=== PATIENT | male | born 1965 | race Caucasian/White ===

== ENCOUNTER 2022-05-09 23:50 | Emergency (ER) | payer SELFPAY ==
[2022-05-10] MEDS: Sodium Chloride 0.9% 1,000 ML IV ONE (00:10)
[2022-05-10] MEDS: HYDROmorphone 1 MG/ML Syringe IVPUSH ONE (00:15)
[2022-05-10 00:38] LABS: ANION GAP 11.8 mmol/L (5-15); CHLORIDE,CL 99 mmol/L (98-107); ESTIMATED GFR 80 mL/min (>=60); SODIUM,NA 131 mmol/L (136-145)
[2022-05-10] MEDS: Iopamidol 612 MG/ML 100 ML Bottle IVPUSH ONE (01:28)
[2022-05-10] MEDS: HYDROmorphone 0.5 MG/0.5 ML Syringe IVPUSH ONE (01:44)
[2022-05-10] MEDS: Levofloxacin/Dextrose 5%-Water 500 MG in Premix Bag 1 BAG IV ONE (02:44)
== END 2022-05-10 04:01 | disposition left against medical advice (07) ==
LOC: VM.ED 23:50
DX: N39.0 Urinary tract infection, site not specified (principal); K57.32 Diverticulitis of large intestine without perforation or abscess without bleeding; K81.9 Cholecystitis, unspecified; Z88.0 Allergy status to penicillin; Z72.0 Tobacco use
CPT/HCPCS: 74177; 80053; 81001; 82150; 83605; 83690; 84145; 85025; 86140; 87086; 96361; 96365; 96375; 96376; 99284-25; J1170; J1956; J7030; Q9967